=== PATIENT | male | born 1970 | race Caucasian/White ===

== ENCOUNTER 2023-11-27 09:44 | Emergency (ER) | payer MEDICAID ==
[~2023-11-27] VITALS: Ht 177.8 cm; Wt 77.8 kg
[2023-11-27 09:47] VITALS: BP 136/97; PULSE 121; RESP 18; O2SAT 100
[2023-11-27] MEDS ORDERED: cyclobenzaprine 10mg tablet PO ONE (11:25)
[2023-11-27] MEDS: cyclobenzaprine 10mg tablet PO STA (11:26)
[2023-11-27] MEDS ORDERED: CYCL-1 PO (11:37)
[2023-11-27] MEDS ORDERED: IBUP-1984 PO (11:37)
[2023-11-27 11:40] VITALS: TEMP 97.9
== END 2023-11-27 11:41 | disposition home or self-care (01) ==
LOC: ER 09:45
DX: M54.50 Low back pain, unspecified (principal); Z79.899 Other long term (current) drug therapy; Z79.1 Long term (current) use of non-steroidal anti-inflammatories (NSAID)
CPT/HCPCS: 99283

== ENCOUNTER 2023-11-30 13:23 | Emergency (ER) | payer MEDICAID ==
[~2023-11-30 13:23] MED LIST: CYCL-1 PO; IBUP-1984 PO
== END 2023-11-30 13:36 | disposition left against medical advice (07) ==
LOC: ER 13:24
DX: Z53.21 Procedure and treatment not carried out due to patient leaving prior to being seen by health care provider (principal)